=== PATIENT | female | born 1965 | race Caucasian/White ===

== ENCOUNTER 2017-11-27 14:47 | Emergency (ER) | payer MEDICARE, MEDICAID, SELFPAY ==
[2017-11-27 14:48] VITALS: BP 124/80; PULSE 111; PULSE 116; RESP 19; TEMP 36.2; O2SAT 97; O2SAT 98; BMI 23.8
--- NOTE | 2017-11-27 15:17 | RAD_ITS ---
STUDY: X-RAY - LUMBAR SPINE REASON FOR EXAM: Female, 52 years old. Status post fall pain lower back TECHNIQUE: 3 view(s) of the lumbar spine were obtained. COMPARISON: None FINDINGS: Normal lumbar lordosis. The patient be leaning towards the right on this study. There is slight retrolisthesis of the level of L3-L4. There is a spinal fusion at the level of L4-L5. There is a plate at the level of the right side of L5. At the level of L3-L4 there is disc space narrowing and endplate sclerosis spondylosis. At L4-L5 there is disc space narrowing. There is facet arthropathy. There is a sclerotic appearance of the vertebral bodies at L3-L4 at the endplates. There is no definitive visualized acute loss of height or alignment. There is diffuse demineralization with multi-level endplate spondylosis. There is multi-level degenerative disc disease with multi-level disc space narrowing. The soft tissue structures are unremarkable. RAD/Lumbar Spine 2 or 3 Views IMPRESSION: Status post spinal fusion L4-L5. Degenerative change. No definitive evidence of acute fracture. Electronically Signed: Leonarda Castillo MD at 16:17 EDT Tel , Service support ,
--- NOTE | 2017-11-27 15:23 | ED.DCSUM_ITS ---
- ER Visit Summary Date of Service: 11/27/17 Chief Complaint: Back pain, fall History of Present Illness: The patient is a 52 F who presents with back pain. She states that 4 days ago she fell down some stairs. She landed on her back. She has pain in the right lower part of her back that radiates down the back of her right leg. No history of back pain or sciatica but she did have back surgery in 2007. She did take Tylenol but it did not help. Denies any numbness or tingling down her leg. Physical Examination: Vital signs reviewed. HEENT exam unremarkable. Heart is regular rate and rhythm without murmurs. Lungs are clear to auscultation. Abdomen is soft and nontender. Back exam reveals tenderness diffusely along the lumbar area. Extremities reveal no edema. Skin exam normal. Neurologic exam normal. Test Results: X-rays of the lumbar spine reveal degenerative changes with previous fusion. No fracture seen Emergency Department Course and Treatment: She was given naproxen. She will be discharged with prednisone and naproxen. She will follow-up with her primary care physician Treatment Plan: [] Disposition: Discharge Impression: Sciatica This note was generated with [employer] dictation software. It may contain incorrect words, spelling, and punctuation that were not noted in review of the chart prior to signing ED Disposition - Plan for ED Patient: Chief Complaint: Back Referrals: NOT,DEFINED [NON-STAFF] -
[2017-11-27] MEDS: Naproxen 500 MG Tablet PO (15:25)
--- NOTE | 2017-11-27 16:23 | ED.DEP ---
ED Disposition - Plan for ED Patient: Disposition: Home or Assisted Living Chief Complaint: Back Instructions: ED Sciatica Prescriptions: Naproxen [Naprosyn] 500 mg PO BID PRN #20 tab Prednisone [Deltasone] 40 mg PO DAILY #10 tab Referrals: Brendan Holley MD [NON-STAFF] -
== END 2017-11-27 16:34 | disposition home or self-care (01) ==
PROVIDERS: Emergency Provider Emergency Medicine
DX: M54.30 Sciatica, unspecified side (principal); Z72.0 Tobacco use; G40.909 Epilepsy, unspecified, not intractable, without status epilepticus
CPT/HCPCS: 72100; 99283

== ENCOUNTER 2020-07-18 16:11 | Emergency (ER) | payer MEDICARE, MEDICAID, SELFPAY ==
[2020-07-18 16:13] VITALS: BP 126/92; PULSE 94; RESP 16; TEMP 36.7; BMI 27.6
--- NOTE | 2020-07-18 16:39 | ED.DCSUM_ITS ---
History of Present Illness Chief Complaint: Lower Extremity Injury Informant: Patient Narrative: 55-year-old female presents post trauma day 1 from a toe injury. She stubbed her toe while barefoot on her arm while. She notes pain in the right third toe. She states that it is swollen and red today. It is painful to touch and move. She has a history of osteomyelitis of the right middle finger following trauma. She is not a diabetic. No breaks in the skin. No bleeding. Patient just moved to the town this weekend. She is in need of a new primary care physician. She would like to stay with the [facility]. Past Medical History - Allergies and Home Meds Allergies/Adverse Reactions: Allergies clarithromycin [From Biaxin] Allergy (Verified 11/27/17 14:48) Anaphylaxis Primary Care Physician: Viola Medellin MD [STAFF PHYSICIAN] - (call to arrange primary care follow up) Past Medical History: - - Migraines Surgical History: noncontributory Smoking Status: Current every day smoker Drugs: None Review of Systems General: Denies: Chills, Fever, Sweats Eyes: Denies: Visual changes - bilaterally, Diplopia ENT: Denies: Rhinorrhea, Sore throat Cardiovascular: Denies: Chest pain, Palpitations Respiratory: Denies: Dyspnea, Cough, Dyspnea on exertion Gastrointestinal: Denies: Abdominal pain, Nausea, Vomiting, Diarrhea, Melena, Hematochezia Genitourinary: Denies: Dysuria, Hematuria, Frequency Musculoskeletal: Reports: Swelling, Extremity Pain. Denies: Back pain Skin: Denies: Rash, Wounds Neurological: Denies: Headache, Weakness, Numbness Physical Exam Vital Signs/Narrative: Vital Signs Temp Pulse Resp BP 07/18/20 16:13 98.0 F 94 16 126/92 H Inital Vital Signs reviewed: Yes General: Well nourished, Well developed, No Acute Distress Head: Normocephalic, Atraumatic Eyes: Perrl, EOMI ENT: Moist mucous membranes, No rhinorrhea Neck: Supple, Nontender Cardiovascular: Regular rate, Regular rhythm, No murmurs Respiratory: No distress, CTA bilaterally, Chest nontender Abdomen: Soft, Nontender, Nondistended, Normal bowel sounds Back: Nontender, Normal Inspection Extremities: Tenderness - Tenderness swelling and erythema of the right third toe. No breaks in the skin. No subungual hematoma noted. No nail disruption. The fat pad is soft. Skin: Normal color, No rash Neurological: Alert, Oriented x3, Cranial nerves II-XII grossly intact, Normal Strength, Normal Sensation Psychological: Normal affect, Normal Mood Diagnostic/Tx/Re-eval Clinical Impression(s) from Imaging Studies Toe X-Ray 07/18/20 16:55 IMPRESSION: Small fracture off the dorsal base of the distal phalanx. Electronically Signed: Esteban Khan DO at 17:19 EST Tel [phone], Service support , - Medical Decision Making Pression of the 3 view toe x-rays are small distal phalanx avulsion fracture. Radiology concurs. Should be placed in a postoperative shoe and given pain medication. Referral to podiatry. ED Disposition - Plan for ED Patient: Disposition: Home or Assisted Living Diagnosis: Toe fracture, right Instructions: ED Fracture, Toe, Closed Prescriptions: Hydrocodone Bitart/Apap 5-325 [Ashley 5MG-325MG] 1 tab PO Q6H PRN PRN 3 Days #12 tab PRN Reason: Pain Prescription Printed Referrals: Viola Medellin MD [STAFF PHYSICIAN] - (call to arrange primary care follow u p) Lauren Goncalves DPM [STAFF PHYSICIAN] - (call to arrange follow up)
--- NOTE | 2020-07-18 16:55 | RAD_ITS ---
STUDY: X-RAY RIGHT FOOT, THIRD TOE REASON FOR EXAM: Female, 55 years old. Injured toe yesterday. Complains of increasing pain, erythema and swelling today. TECHNIQUE: 3 view(s) of the toe were obtained. COMPARISON: None. FINDINGS: Normal visualized metatarsus. Normal metatarsophalangeal (M.T.P) joint. Normal interphalangeal joints. Normal proximal and middle phalanx. There is a small fracture off the medial dorsal aspect of the distal phalanx.. Mild soft tissue swelling of the third digit. RAD/Toe(s) Min 2 Views IMPRESSION: Small fracture off the dorsal base of the distal phalanx. Electronically Signed: Esteban Khan DO at 17:19 EST Tel [phone], Service support ,
[2020-07-18 17:38] VITALS: RESP 17
== END 2020-07-18 17:45 | disposition home or self-care (01) ==
PROVIDERS: Emergency Provider Emergency Medicine
DX: S92.534A Nondisplaced fracture of distal phalanx of right lesser toe(s), initial encounter for closed fracture (principal); F17.200 Nicotine dependence, unspecified, uncomplicated; W22.8XXA Striking against or struck by other objects, initial encounter; Y93.89 Activity, other specified; Y92.89 Other specified places as the place of occurrence of the external cause; Y99.8 Other external cause status
CPT/HCPCS: 73660; 99283